=== PATIENT | male | born 1970 | race African-American/Black ===

== ENCOUNTER → 2023-11-01 | Emergency (ER) | payer OTHER ==
[~2023-11-01] MED LIST: NA CHLORIDE 0.9% 250 ML ONE; PANTOPRAZOLE 40 MG INJ ONE; PANTOPRAZOLE INJ 80 MG in NA CHLORIDE 0.9% 250 ML IV SCH
--- NOTE | 2023-11-01 10:49 | RAD REPORT ---
EXAM DESCRIPTION: CT - Head Brain Wo Cont - 11/01/2023 10:36 am CLINICAL HISTORY: Confusion and dizziness COMPARISON: none TECHNIQUE: Computed axial tomography of the head was obtained. IV contrast was not requested. All CT scans are performed using dose optimization technique as appropriate and may include automated exposure control or mA/KV adjustment according to patient size. FINDINGS: An intracranial bleed is not seen The ventricles are normal in caliber No significant hypodense areas within the brain visualized No extra-axial fluid collection is noted. Fluid within the sinuses/ mastoids is not seen IMPRESSION: No acute intracranial abnormality is seen If patient's symptoms persist MRI of the brain would be recommended
--- NOTE | 2023-11-01 10:56 | RAD REPORT ---
EXAM DESCRIPTION: CTHead angio11/01/2023 10:36 am CLINICAL HISTORY: Dizziness and confusion COMPARISON: none TECHNIQUE: 100 cc Isovue [address] angiogram of the head was obtained. 3D MIPS reconstruction performed. All CT scans are performed using dose optimization technique as appropriate and may include automated exposure control or mA/KV adjustment according to patient size. FINDINGS: The distal internal carotid, basilar, anterior cerebral, middle cerebral and posterior cer ebral arteries do not demonstrate a significant stenosis An aneurysm is not seen No large vessel occlusion IMPRESSION: No significant abnormality is displayed
--- NOTE | 2023-11-01 10:57 | RAD REPORT ---
EXAM DESCRIPTION: [place] Angio11/01/2023 10:37 am CLINICAL HISTORY: Dizziness and confusion COMPARISON: None TECHNIQUE: 100 cc Isovue [address] angiogram of the neck was obtained. 3D MIPS reconstruction performed. All CT scans are performed using dose optimization technique as appropriate and may include automated exposure control or mA/KV adjustment according to patient size. FINDINGS: Suboptimal opacification of the arteries. Visualized aortic arch and great vessels unremarkable Common carotid, internal carotid and external carotid arteries bilaterally appear grossly normal Vertebral arteries unremarkable Evaluation for a dissection limited. No dissection seen. . No high-grade stenosis [place] crieria Mild stenosis 0 to 49 % Moderate stenosis 50-69% Severe stenosis 70-99% IMPRESSION: Suboptimal opacification of the arteries. No gross significant abnormality displayed
[2023-11-01 11:00] LABS: Absolute Basophils 0.1 K/uL (0-0.5); Absolute Lymphocytes (CBC) 1.1 K/uL (0.7-4.9); Absolute Monocytes 0.3 K/uL (0.1-1.3); Absolute Neutrophil 5.6 K/uL (1.8-8.0); Basophils % 0.9 % (0-1.3); Eosinophils % 0.6 % (0-4.4); Hematocrit 7.5 % (39.6-49.0); Lymphocytes % 15.1 % (15.3-44.8); MCH 28.2 pg (27.0-35.0); MCHC 33.4 g/dL (32.0-36.0); MCV 84.3 fL (80-100); MPV 7.7 fL (7.6-11.3); Monocytes % 4.6 % (3.3-12.3); Neutrophils % 78.8 % (41.7-73.7); Nucleated Red Blood Cells % 0.1 % (0-0); Platelets 371 thou/uL (152-406); RBC Red Blood Cell Count 0.89 M/uL (4.33-5.43); Red Cell Distribution Width 18.1 % (12.1-15.2)
[2023-11-01 11:02] LABS: PT Prothrombin Time 12.5 SECONDS (9.5-12.5); PTT, Activated Partial Thromb 18.3 SECONDS (24.3-36.9); Protime INR 1.14
[2023-11-01 11:03] LABS: Barbiturates NEGATIVE (NEGATIVE); Benzodiazepines NEGATIVE (NEGATIVE); Cocaine NEGATIVE (NEGATIVE); METHAMPHETAM NEGATIVE (NEGATIVE); Methadone NEGATIVE (NEGATIVE); Opiates NEGATIVE (NEGATIVE); Phencyclidine NEGATIVE (NEGATIVE); THC Cannibis POSITIVE (NEGATIVE)
[2023-11-01 11:06] LABS: Hemoglobin 2.5 g/dL (13.6-17.9)
[2023-11-01 11:11] LABS: Renal Epithelial <5 /HPF (None Seen); Specific Gravity 1.015 (1.005-1.030); Sqamous Epithelial None Seen /HPF (None Seen); Urine Bacteria <20 /HPF (<20); Urine Bilirubin NEGATIVE (Negative); Urine Blood Negative (Negative); Urine Clarity Clear (Clear); Urine Color Colorless (Yellow); Urine Culture Reflex Order REFLEXED; Urine Glucose NEGATIVE (Negative); Urine Ketones NEGATIVE (Negative); Urine Micro Reflex YN NO BILL MICROSCOPIC; Urine Mucus Slight /HPF (None Seen); Urine Nitrite NEGATIVE (Negative); Urine Protein NEGATIVE (Negative); Urine RBC <5 /HPF (None Seen); Urine Urobilinogen Normal (Normal)
[2023-11-01 11:20] LABS: ALT/SGPT 11 U/L (16-61); AST/SGOT 8 U/L (15-37); Albumin 2.4 g/dL (3.4-5.0); Alkaline Phosphatase 50 U/L (45-117); Anion Gap 8.9 mEq/L (5.0-15.0); BUN Blood Urea Nitrogen 23 mg/dL (7-18); Bicarbonate 23 mEq/L (21-32); Bilirubin Direct < 0.1 mg/dL (0-0.2); Bilirubin Indirect, Calculated ND mg/dL (0.2-0.8); Bilirubin Total 0.1 mg/dL (0.2-1.0); Globulin 2.4 g/dL (2.3-3.5); Glomerular Filtration Rate 66 ml/min (=/>90); Glucose Level 114 mg/dL (74-106); Potassium 3.9 mEq/L (3.5-5.1); Protein, Total 4.8 g/dL (6.4-8.2); Sodium Level 138 mEq/L (136-145)
--- NOTE | 2023-11-01 11:29 | ER ---
Nurse's Notes [facility] Name: Quinn Milligan Age: 53 yrs Sex: Male : 1970 Arrival Date: 11/01/2023 Time: 08:49 Bed 2 Private MD: Diagnosis: Melena;GI Bleed/ Gastrointestinal hemorrhage, unspecified;Anemia, unspecified Presentation: 10/31 08:52 Chief complaint: Patient states: Dizziness and confusion for 2-3 days. Weakness started ll1 today. Left eye started closing more than the right on the trip here per EMS. EMS states: VSS fingerstick 149. Coronavirus screen: Client denies travel out of the [place] in the last 14 days. At this time, the client does not indicate any symptoms associated with coronavirus-19. Ebola Screen: Patient denies travel to an Ebola-affected area in the 21 days before illness onset. Initial Sepsis Screen: Does the patient meet any 2 criteria? No. Patient's initial sepsis screen is negative. Does the patient have a suspected source of infection? No. Patient's initial sepsis screen is negative. Risk Assessment: Do you want to hurt yourself or someone else? Patient reports no desire to harm self or others. Onset of symptoms was October 30, 2023. 08:52 Method Of Arrival: EMS ll1 08:52 Acuity: RYAN 2 ll1 08:52 An acute neurological deficit is present. The patient has been moved to a treatment 5 area. Triage Assessment: 14:46 The onset of the patients symptoms was. General: Appears in no apparent distress. kd3 Stroke Activation: Symptom onset > 6 hours Physician: Stroke Attending; Name: ; Notified At: ; Arrived At: Physician: Chief Stroke Resident; Name: ; Notified At: ; Arrived At: Physician: Stroke Resident; Name: ; Notified At: ; Arrived At: Physician: ED Attending; Name: ; Notified At: ; Arrived At: Physician: ED Resident; Name: ; Notified At: ; Arrived At: Historical: - Allergies: 08:51 No Known Allergies; ll1 - Home Meds: 08:51 carvedilol 12.5 mg oral tablet [Active]; ll1 - PMHx: 08:51 Hypertensive disorder; ll1 - PSHx: 09:27 eye sx as a child; aa5 - Immunization history:: Adult Immunizations up to date. - Social history:: Smoking status: Patient denies any tobacco usage or history of. Screenin:52 [facility] ED Fall Risk Assessment (Adult) History of falling in the last 3 months, aa5 including since admission No falls in past 3 months (0 pts) Confusion or Disorientation Yes (5 pts) Score/Fall Risk Level 3 or more points = High Risk Oriented to surroundings, Maintained a safe environment, Educated pt \\T\\ family on fall prevention, incl call for assistance when getting out of bed. Abuse screen: Denies threats or abuse. Nutritional screening: No deficits noted. Tuberculosis screening: No symptoms or risk factors identified. Assessment: 08:52 VAN Scoring: Arm Drift: Patients demonstrates NO arm weakness. Patient is VAN Negative. aa5 Visual Disturbance: No visual disturbance noted. Aphasia: No aphasia noted. Neglect: No neglect noted. TNKase (Tenecteplase) Screening: Contraindications: Patient reports onset of signs and symptoms of stroke greater than 6 hours ago: Yes. 08:52 General: Appears comfortable, Behavior is calm, cooperative. Pain: Denies pain. Neuro: aa5 Level of Consciousness is obeys commands, confused, Oriented to person, place, situation, Not oriented to time. Pt is sleepy, easy to awake to verbal stimuli. . Wool Supplier are weak bilaterally Moves all extremities. Weakness Gait is unable to assess at this time. Pt's states "he is having trouble standing up by himself" . Speech is normal, Facial symmetry appears normal, left eye droop noted . Pupils are PERRLA, Intact Reports dizziness, since yesterday. Cardiovascular: Heart tones S1 S2 present Rhythm is sinus rhythm with unifocal PVCs. Respiratory: Airway is patent Respiratory effort is even, unlabored, Respiratory pattern is regular, symmetrical. GI: Abdomen is round non-distended, Bowel sounds present X 4 quads. Abd is soft and non tender X 4 quads. Reports had nausea/vomiting/diarrhea 10/26/23 that lasted approximately 24 hours. Reports normal BM yesterday. : No signs and/or symptoms were reported regarding the genitourinary system. EENT: No signs and/or symptoms were reported regarding the EENT system. Derm: Skin is dry, Skin is normal, Skin temperature is warm. Musculoskeletal: Range of motion: intact in all extremities. 09:50 Reassessment: Steffany at bedside recollecting hemoglobin/hematocrit per orders and aa5 attempting US IV, pt is a hard stick. . 09:50 [place] Swallow Protocol Exclusion Criteria: NPO for medical/surgical reason by provider aa5 order Yes. 09:50 Reassessment: Pt resting in bed with eyes closed, respirations even and unlabored. . aa5 10:05 Reassessment: Upon attempting to establish IV access with ultrasound assistance, nj1 patient moves making it slightly difficult to continue. Pt's requests for me to stop procedure, does not want second IV access at this time. Procedure stopped, primary nurse as well as ED physician notified. 10:12 Reassessment: Spoke to Kamini, from lab to come and collect hemoglobin/hematocrit. . aa5 10:28 Reassessment: Pt to CT scan via stretcher. aa5 10:40 Reassessment: Pt back from CT scan, lab at bedside collecting blood, Daija garcia5 (phlebotomy) at bedside. . 10:40 General: Appears comfortable, Behavior is calm, cooperative. Neuro: Level of aa5 Consciousness is awake, obeys commands, confused, Oriented to sleepy, easy to awaken to verbal stimuli. . Respiratory: Airway is patent Respiratory effort is even, unlabored, Respiratory pattern is regular, symmetrical. Derm: Skin is dry, Skin is normal, Skin temperature is warm. 11:45 Reassessment: Awaiting Protonix drip from pharmacy . aa5 11:50 Reassessment: Consent for RBCs signed by pt's . aa5 11:50 Neuro: Level of Consciousness is obeys commands, confused, sleepy, easy to awaken to aa5 verbal stimuli. . Oriented to person, place, situation. Respiratory: Airway is patent Respiratory effort is even, unlabored, Respiratory pattern is regular, symmetrical. Derm: Skin is dry, Skin is normal, Skin temperature is warm. 12:35 Reassessment: RBC unit #1 started at 1220, infusion started at 50cc/hr, no adverse aa5 reaction noted or reported, infusion currently at 200cc/hr, pt tolerating well. See blood transfusion record for more information. Pt's remains at bedside. Currently pending transfer .. 12:44 Reassessment: Dr. Orta at bedside. . aa5 13:30 Reassessment: Report given to Tim nurse at [facility]. . aa5 13:50 Reassessment: RBC unit #1 completed. . aa5 13:50 Neuro: Level of Consciousness is awake, alert, obeys commands, Oriented to person, aa5 place, time, situation. Respiratory: Airway is patent Respiratory effort is even, unlabored, Respiratory pattern is regular, symmetrical. Derm: Skin is dry, Skin is normal, Skin temperature is warm. 13:50 Reassessment: Patient states feeling better. Pt more talkative now. . aa5 14:10 Reassessment: RBC unit #2 started at 1355, infusion started at 50cc/hr and now aa5 currently infusing at 200cc/hr, no adverse reaction noted or reported, see blood transfusion record for more information. Pt tolerating well. Pt states feeling better and is awake and alert x 4. . 14:45 General: Report given and blood hand over given to [facility]. Pt stable for kd3 transport. . Vital Signs: 08:52 BP 130 / 58; Pulse 57; Resp 16 S; Temp 98.2(TE); Pulse Ox 99% on R/A; aa5 09:00 BP 130 / 58; Pulse 86; Resp 16 S; Pulse Ox 100% on R/A; aa5 10:00 BP 126 / 81; Pulse 93; Resp 17 S; Pulse Ox 100% on R/A; aa5 11:00 BP 132 / 65; Pulse 93; Resp 16 S; Temp 97.8(TE); Pulse Ox 100% on R/A; aa5 11:38 Weight 68.04 kg (R); mc5 12:10 BP 112 / 56; Pulse 86; Resp 17; Temp 97.8(TE); Pulse Ox 99% on R/A; aa5 12:35 BP 130 / 61; Pulse 84; Resp 16 S; Temp 98(TE); Pulse Ox 100% on R/A; aa5 13:50 BP 95 / 69; Pulse 85; Resp 16 S; Temp 98(TE); Pulse Ox 99% on R/A; aa5 NIH Stroke Scale Scores: 08:52 NIHSS Score: 2 aa5 ED Course: 08:50 Patient arrived in ED. ll1 08:51 Arm band placed on Patient placed in an exam room, on a stretcher. ll1 08:52 Patient has correct armband on for positive identification. Placed in gown. Bed in low aa5 position. Call light in reach. Side rails up X2. Client placed on continuous cardiac and pulse oximetry monitoring. NIBP monitoring applied. alarm security or surveillance monitor on. 08:54 Triage completed. ll1 08:55 Initial lab(s) drawn, by me, sent to lab. Inserted saline lock: 20 gauge in left wrist, aa5 using aseptic technique. Blood collected. 08:56 Mel Doss, CHANDLER is Primary Nurse. aa5 08:56 Burak Orta MD is Attending Physician. ec2 09:24 No provider procedures requiring assistance completed. aa5 09:45 Missed attempt(s): 22 gauge in right wrist. Bleeding controlled, band aid applied, nj1 catheter tip intact. 10:38 CT Head Brain wo Cont In Process Unspecified. EDMS 10:38 CT Head Angio In Process Unspecified. EDMS 10:38 CT Neck Angio In Process Unspecified. EDMS 10:50 T\\T\\S collected, blood band applied to patient. aa5 11:06 Notified ED physician of a critical lab result(s). hgb: 2.5 and hct 7.5. 5 11:[address] [facility]. 5 11:50 Provided Education on: Blood Transfusion. aa5 11:50 Consent for blood and/or blood product transfusion explained by staff, signed by spouse.aa5 11:51 Inserted saline lock: 22 gauge in right forearm, using aseptic technique. hb 11:[address] [facility] called back stating they are at full capacity and can not [facility] accept the patient. 12:11 Initiated transfer to [facility]. mc5 12:57 Patient accepted to [facility] by Dr. Garber/ Dr. Baez to ER, Admin [facility] approval given by Mohan Gates. 13:08 Requested transport from [facility], 10 min ETA. [facility] 14:48 Patient transferred, IV remains in place. aa5 Administered Medications: 11:45 Drug: Pantoprazole IVP 80 mg IVP once Route: IVP; Site: left forearm; aa5 12:00 Follow up: Response: No adverse reaction aa5 12:00 Drug: Pantoprazole IV 8 mg/hr IV at 25 ml/hr continuous; (Standard dilution is 80 mg in aa5 250 mL NS) Route: IV; Rate: 25 ml/hr; Site: right forearm; 14:50 Follow up: IV Status: Infusion continued upon transfer aa5 Medication: 09:24 VIS not applicable for this client. aa5 13:50 Blood products: PRBCs X 1 unit given. aa5 Point of Care Testing: Blood Glucose: 08:56 Blood Glucose: 121 mg/dL; aa5 Ranges: Outcome: 11:28 ER care complete, transfer ordered by MD. ec2 14:45 Transferred by ground EMS kd3 14:45 Condition: stable 14:45 Discharge instructions given to patient, family, Instructed on the need for transfer, Demonstrated understanding of instructions, 14:50 Patient left the ED. aa5 NIH Stroke Scale - NIH Stroke Score Date: 11/01/2023 Time: 08:52 Total Score = 2 10. Dysarthria (speech clarity - read or repeat words) - 0(Normal) 11. Extinction and Inattention (visual/tactile/auditory/spatial/personal) - 0(No abnormality) 1a. Level of Consciousness (LOC) - 0(Alert) 1b. Level of Consciousness (LOC) (Month \\T\\ Age) - 1(One) 1c. LOC Commands (Open \\T\\ Closes Eyes/Cost Coordinator) - 0(Both) 2. Best Gaze (Lateral Gaze Paresis) - 0(Normal) 3. Visual Field Loss - 0(No visual loss) 4. Facial Palsy - 1(Minor Paralysis) 5a. Left Arm: Motor (10-second hold) - 0(No drift) 5b. Right Arm: Motor (10-second hold) - 0(No drift) 6a. Left Leg: Motor (5-second hold - always test supine) - 0(No drift) 6b. Right Leg: Motor (5-second hold - always test supine) - 0(No drift) 7. Limb Ataxia (finger/nose \\T\\ heel/ventura - test with eyes open) - 0(Absent) 8. Sensory Loss (pinprick arms/legs/face) - 0(Normal) 9. Best Language: Aphasia (description/naming/reading) - 0(No aphasia) Initials: aa5 Signatures: Dispatcher [employer] EDGA Mel Doss RN RN aa5 Sylvia Kearns RN RN Tara Linares RN RN ll1 Amelia Mcnulty, RN RN kd3 Steffany Gonzalez, CHANDLER RN nj1 Raymond Gely 5 Burak Orta MD MD ec2 Corrections: (The following items were deleted from the chart) 09:24 08:52 Neuro: Level of Consciousness is awake, alert, obeys commands, Oriented aa5 to person, place, time, situation, Wool Supplier are weak bilaterally Moves all extremities. Weakness Gait is unable to assess at this time. Pt's states "he is having trouble standing up by himself" . Speech is normal, Facial symmetry appears normal, left eye droop noted . Pupils are PERRLA, Intact Reports dizziness, since yesterday aa5 09:27 08:51 PSHx: None; ll1 aa5 10:49 10:48 Reassessment: Pt back from CT scan, lab at bedside collecting blood, aa5 Daija (phlebotomy) at bedside. . aa5 12:45 12:35 Reassessment: RBC unit #1 started at 1220, infusion started at 50cc/hr, aa5 no adverse reaction noted or reported, infusion currently at 200cc/hr, pt tolerating well. Pt's remains at bedside. Currently pending transfer .. aa5 14:54 14:10 Reassessment: RBC unit #2 started at 1355, infusion started at 50cc/hr aa5 and now currently infusing at 200cc/hr, no adverse reaction noted or reported, pt tolerating well. Pt states feeling better and is awake and alert x 4. . aa5 16:26 15:01 Patient left the ED. aa5 aa5
--- NOTE | 2023-11-01 11:29 | EDPHYS ---
Physician Documentation [facility] Name: Quinn Milligan Age: 53 yrs Sex: Male : 1970 Arrival Date: 11/01/2023 Time: 08:49 Bed 2 Private MD: ED Physician Burak Orta HPI: 10/31 08:58 This 53 yrs old Male presents to ER via EMS with complaints of Dizziness - ec2 confusion. 08:58 Patient arrives today for evaluation of confusion as well as dizziness. Patient has ec2 been having dizziness for the past approximately 24 hours. No recent falls or injuries or trauma. Patient also with some confusion. Patient over the weekend has been sick, decreased p.o. intake with some associated nausea and vomiting and diarrhea. There is also question about a left-sided eye droop, patient states that he had some type of eyelid surgery as a child however he does not always have a droop and this may or may not be exacerbated with fatigue. Patient is having worsening eye droop as of today.. Historical: - Allergies: 08:51 No Known Allergies; ll1 - Home Meds: 08:51 carvedilol 12.5 mg oral tablet [Active]; ll1 - PMHx: 08:51 Hypertensive disorder; ll1 - PSHx: 09:27 eye sx as a child; aa5 - Immunization history:: Adult Immunizations up to date. - Social history:: Smoking status: Patient denies any tobacco usage or history of. ROS: 08:58 Constitutional: as per hpi ec2 Exam: 08:58 Constitutional: GEN: NAD Head: atraumatic Eyes: EOMI Ears: External ears are ec2 normal. CV: regular rate LUNGS: no respiratory distress ABD: non-distended SKIN: no evidence of rashes MSK: no evidence of trauma NEURO: Left eye droop that is correctable with effort, otherwise no facial palsy, extraocular motions intact, bilateral upper extremities with equal strength, bilateral lower extremities with equal strength. Vital Signs: 08:52 BP 130 / 58; Pulse 57; Resp 16 S; Temp 98.2(TE); Pulse Ox 99% on R/A; aa5 09:00 BP 130 / 58; Pulse 86; Resp 16 S; Pulse Ox 100% on R/A; aa5 10:00 BP 126 / 81; Pulse 93; Resp 17 S; Pulse Ox 100% on R/A; aa5 11:00 BP 132 / 65; Pulse 93; Resp 16 S; Temp 97.8(TE); Pulse Ox 100% on R/A; aa5 11:38 Weight 68.04 kg (R); mc5 12:10 BP 112 / 56; Pulse 86; Resp 17; Temp 97.8(TE); Pulse Ox 99% on R/A; aa5 12:35 BP 130 / 61; Pulse 84; Resp 16 S; Temp 98(TE); Pulse Ox 100% on R/A; aa5 13:50 BP 95 / 69; Pulse 85; Resp 16 S; Temp 98(TE); Pulse Ox 99% on R/A; aa5 NIH Stroke Scale Scores: 08:52 NIHSS Score: 2 aa5 MDM: 08:56 Patient medically screened. ec2 08:58 Data reviewed: vital signs. ED course: Patient arrives today for evaluation of ec2 dizziness, weakness, possible left eye droop. Examination remarkable for neuro findings as noted above. Will obtain CT scan of the head, CT angio head and neck, laboratory evaluation. Given that the patient is been having dizziness for the past 24 hours, he would not be an appropriate TNK candidate. Evaluating for possible stroke, possible urinary tract infection, electrolyte disturbances.. 09:11 ED course: EKG independently reviewed and interpreted by me, shows normal sinus rhythm, ec2 rate of 84, no acute ST segment elevations, nonspecific abnormalities noted in the lateral waves, intervals nonconcerning. 11:07 ED course: CBC with a hemoglobin of 2.5. Urine drug screen pertinent for THC. CT scan ec2 of the head shows no acute intracranial process, CT angio head and neck without acute process identified. . 11:27 ED course: On digital rectal examination, patient has gross melena noted. I ordered for ec2 type and cross and transfusion of the patient, I will transfuse the patient and I will transfer the patient for GI capable facility. Family has a preference for [facility], will attempt there.. 12:46 ED course: I discussed case with medical care doctor at [facility] who ec2 agrees to accept patient. . 10/31 09:28 Order name: Type And Screen [facility] 10/31 08:57 Order name: Basic Metabolic Panel; Complete Time: 11:29 ec2 10/31 08:57 Order name: CBC with Diff; Complete Time: 11:07 ec2 10/31 08:57 Order name: High Sensitivity Troponin; Complete Time: 11:29 ec2 10/31 08:57 Order name: Protime (+inr); Complete Time: 11:29 ec2 10/31 08:57 Order name: Ptt, Activated; Complete Time: 11:29 ec2 10/31 08:57 Order name: LFT's; Complete Time: 11:29 ec2 10/31 08:57 Order name: UAM; Complete Time: 11:29 ec2 10/31 08:57 Order name: UDS; Complete Time: 11:07 ec2 10/31 09:21 Order name: Glucose, Ancillary Testing; Complete Time: 09:23 EDMS 10/31 11:12 Order name: ABO/RH no charge; Complete Time: 11:29 EDMS 10/31 11:16 Order name: Packed RBC Leukored EDMS 10/31 11:17 Order name: CREATININE WHOLE BLOOD; Complete Time: 11:29 EDMS 10/31 11:23 Order name: Urine Culture EDMS 10/31 08:57 Order name: CT Head Brain wo Cont; Complete Time: 11:07 ec2 10/31 08:57 Order name: CT Head Angio; Complete Time: 11:07 ec2 10/31 08:57 Order name: CT Neck Angio; Complete Time: 11:07 ec2 10/31 08:57 Order name: EKG; Complete Time: 08:57 ec2 10/31 08:57 Order name: Accucheck; Complete Time: 09:10 ec2 10/31 08:57 Order name: Cardiac monitoring; Complete Time: 09:10 ec2 10/31 08:57 Order name: EKG - Nurse/Tech; Complete Time: 09:10 ec2 10/31 08:57 Order name: IV Saline Lock; Complete Time: 09:10 ec2 10/31 08:57 Order name: Labs collected and sent; Complete Time: 09:10 ec2 10/31 08:57 Order name: NPO; Complete Time: 09:10 ec2 10/31 08:57 Order name: O2 Per Protocol; Complete Time: 09:11 ec2 10/31 08:57 Order name: O2 Sat Monitoring; Complete Time: 09:11 ec2 10/31 10:36 Order name: Labs - recollect needed; Complete Time: 11:00 mc5 10/31 11:08 Order name: Consent for Blood Transfusion; Complete Time: 11:53 ec2 10/31 11:08 Order name: IV Saline Lock; Complete Time: 11:53 ec2 Administered Medications: 11:45 Drug: Pantoprazole IVP 80 mg IVP once Route: IVP; Site: left forearm; aa5 12:00 Follow up: Response: No adverse reaction aa5 12:00 Drug: Pantoprazole IV 8 mg/hr IV at 25 ml/hr continuous; (Standard dilution is 80 mg in aa5 250 mL NS) Route: IV; Rate: 25 ml/hr; Site: right forearm; 14:50 Follow up: IV Status: Infusion continued upon transfer aa5 Point of Care Testing: Blood Glucose: 08:56 Blood Glucose: 121 mg/dL; aa5 Ranges: Critical Glucose Levels:Adult <50 mg/dl or >400 mg/dl <40 mg/dl or >180 mg/dl Disposition Summary: 11/01/23 11:28 Transfer Ordered Notes: Transfer Location: [facility] ec2 Reason: Higher level of care ec2 Condition: Stable ec2 Problem: new ec2 Symptoms: are unchanged ec2 Accepting Physician: transferring doc(11/01/23 15:01) aa5 Diagnosis - Melena ec2 - GI Bleed/ Gastrointestinal hemorrhage, unspecified ec2 - Anemia, unspecified ec2 Forms: - Medication Reconciliation Form ec2 - SBAR form ec2 Critical care time excluding procedures: 12:46 Critical care time: Bedside Care: 30 minutes, Consultation: 5 minutes. Total time: 35 ec2 minutes NIH Stroke Scale - NIH Stroke Score Date: 11/01/2023 Time: 08:52 Total Score = 2 10. Dysarthria (speech clarity - read or repeat words) - 0(Normal) 11. Extinction and Inattention (visual/tactile/auditory/spatial/personal) - 0(No abnormality) 1a. Level of Consciousness (LOC) - 0(Alert) 1b. Level of Consciousness (LOC) (Month \T\ Age) - 1(One) 1c. LOC Commands (Open \T\ Closes Eyes/Trumpet Player) - 0(Both) 2. Best Gaze (Lateral Gaze Paresis) - 0(Normal) 3. Visual Field Loss - 0(No visual loss) 4. Facial Palsy - 1(Minor Paralysis) 5a. Left Arm: Motor (10-second hold) - 0(No drift) 5b. Right Arm: Motor (10-second hold) - 0(No drift) 6a. Left Leg: Motor (5-second hold - always test supine) - 0(No drift) 6b. Right Leg: Motor (5-second hold - always test supine) - 0(No drift) 7. Limb Ataxia (finger/nose \T\ heel/ventura - test with eyes open) - 0(Absent) 8. Sensory Loss (pinprick arms/legs/face) - 0(Normal) 9. Best Language: Aphasia (description/naming/reading) - 0(No aphasia) Initials: aa5 Signatures: Dispatcher [employer] EDMS Corinne Torres, CAR SHIFTER-C CAR SHIFTER-Ckb Geraldine Zapata CAR SHIFTER-C CAR SHIFTER-Csnw Mel Doss, RN RN aa5 Horcaio Mares CAR SHIFTER-Samuel CAR SHIFTER-Cla1 Tara Linares RN RN ll1 Gely Andrade 5 Burak Orta MD MD ec2 Corrections: (The following items were deleted from the chart) 09:27 08:51 PSHx: None; ll1 aa5 10:56 09:28 Hematocrit+H.LAB.BRZ ordered. EDMS EDMS 10:56 09:28 Hemoglobin+H.LAB.BRZ ordered. EDMS EDMS 11:15 11:09 PACKED RBC LEUKORED+BB.LAB.BRZ ordered. EDMS EDMS 11:15 11:10 ABO/RH typing ordered. EDMS EDMS 11:15 11:10 Antibody Screen ordered. EDMS EDMS 14:19 08:57 Stroke Swallow Screen ordered. ec2 kd3 15:01 11:28 transferring doc ec2 aa5
[2023-11-01 15:28] VITALS: BP 95/69; TEMP 98; O2SAT 99
== END ==
LOC: ER 08:49
PROC: 30233N1 Transfusion of Nonautologous Red Blood Cells into Peripheral Vein, Percutaneous Approach (ICD-10-PCS; principal; 2023-11-01)
DX: K92.1 Melena (principal); D64.9 Anemia, unspecified; R42 Dizziness and giddiness; I10 Essential (primary) hypertension
CPT/HCPCS: 96365; 87088; 85025; 81001; 87086; 80048; 36415; 86900; 86850; 85610; 82565; 86901; 82947; 80076; 85730; 86920 ×2; 87077; 87186; 84484; 80307; 70450; 70496; 70498; 36430; 99285; 96366; Q9967; C9113; P9016 ×2; J7050; 93005